=== PATIENT | female | born 1935 | race Hispanic/Latino ===

== ENCOUNTER → 2018-10-28 | Outpatient (CLI) | payer OTHER, MEDICARE | END | disposition home or self-care (01) | LOC: SHCH 07:55 | PROVIDERS: ATTEND Internal Medicine Cardiovascular Disease | DX: I71.4 Abdominal aortic aneurysm, without rupture (principal) | CPT/HCPCS: 93978 ==

== ENCOUNTER → 2018-10-30 | Outpatient (CLI) | payer OTHER | END | disposition home or self-care (01) | LOC: SHCH 08:32 → EDUNIT# 09:30 | PROVIDERS: ATTEND Internal Medicine Cardiovascular Disease | DX: I65.23 Occlusion and stenosis of bilateral carotid arteries (principal); I73.9 Peripheral vascular disease, unspecified | CPT/HCPCS: 93880; 93930 ==

== ENCOUNTER → 2018-12-09 | Outpatient (CLI) | payer OTHER, MEDICARE ==
[~2018-12-09] MED LIST: REGADENOSON 0.4 MG/5 ML PF SYG IVP SCH
== END | disposition home or self-care (01) ==
LOC: SHCH 07:58
PROVIDERS: ATTEND Internal Medicine Cardiovascular Disease
DX: I34.0 Nonrheumatic mitral (valve) insufficiency (principal); I35.0 Nonrheumatic aortic (valve) stenosis; I10 Essential (primary) hypertension
CPT/HCPCS: 78452; 93017; 96374; A9500 ×2; J2785

== ENCOUNTER → 2018-12-22 | Outpatient (CLI) | payer OTHER ==
[~2018-12-22] MED LIST changes: +IOHEXOL 350 MG/ML 100ML INFUS..BTL IV ONE; -REGADENOSON 0.4 MG/5 ML PF SYG IVP SCH
== END | disposition home or self-care (01) ==
LOC: RAH 07:40
PROVIDERS: ATTEND Internal Medicine Cardiovascular Disease
DX: K57.30 Diverticulosis of large intestine without perforation or abscess without bleeding (principal); I71.4 Abdominal aortic aneurysm, without rupture; R09.89 Other specified symptoms and signs involving the circulatory and respiratory systems; J43.9 Emphysema, unspecified; I70.1 Atherosclerosis of renal artery; Z90.49 Acquired absence of other specified parts of digestive tract
CPT/HCPCS: 74174; Q9967

== ENCOUNTER → 2019-01-23 | Outpatient (CLI) | payer OTHER | END | disposition home or self-care (01) | LOC: RAH 07:47 | PROVIDERS: ATTEND Internal Medicine Cardiovascular Disease | DX: I08.3 Combined rheumatic disorders of mitral, aortic and tricuspid valves (principal) | CPT/HCPCS: 93306 ==

== ENCOUNTER 2019-02-17 06:05 | Day surgery (SDC) | payer OTHER ==
[2019-02-12 09:42] VITALS: BP 165/63
[2019-02-12 09:53] LABS: BASOPHILS % (AUTO) 0.6 % (0.0-5.0); HEMATOCRIT 36.1 % (36-48); LYMPHOCYTES % (AUTO) 41.9 % (21.0-51.0); MEAN CORPUSCULAR HEMOGLOBIN 30.1 pg (27.0-33.0); MEAN CORPUSCULAR HGB CONC 33.4 g/dL (32.0-36.0); MEAN CORPUSCULAR VOLUME 89.9 fL (79-99); MONOCYTES % (AUTO) 10.4 % (3.0-13.0); NEUTROPHILS % (AUTO) 45.1 % (40.0-77.0); PLATELET COUNT (AUTO) 247 K/uL (130-400); RED BLOOD CELL COUNT(AUTO) 4.02 MIL/uL (4.00-5.50); RED CELL DISTRIBUTION WIDTH 19.2 % (11.0-15.5); WHITE BLOOD COUNT (AUTO) 7.7 K/uL (4.8-10.8)
[2019-02-12 09:55] LABS: APPEARANCE,URINE Clear (CLEAR); BILIRUBIN,URINE Negative (NEGATIVE); COLOR,URINE Yellow (YELLOW); GLUCOSE, URINE (UA) Negative (NEGATIVE); KETONES,URINE Negative (NEGATIVE); LEUKOCYTE ESTERASE ,URINE Moderate (NEGATIVE); NITRATE,URINE Negative (NEGATIVE); OCCULT BLOOD,URINE Moderate (NEGATIVE); PH,URINE 5.5 (5.0-8.0); PROTEIN,URINE Negative (NEGATIVE)
[2019-02-12 10:01] LABS: BACTERIA,URINE Rare /HPF (None Seen); HYALINE CASTS, URINE 0-1 /LPF (0-1 /LPF); MUCUS,URINE Rare LPF (None Seen); SQUAMOUS EPITHELIAL CELL,UR Rare /HPF (0-2)
[2019-02-12 10:02] LABS: CREATININE 0.9 mg/dL (0.5-1.5); POTASSIUM 4.3 mmol/L (3.5-5.1)
[2019-02-12 10:03] LABS: INR 1.05 (0.85-1.15); PARTIAL THROMBOPLASTIN TIME 27.6 SEC (26.3-35.5)
--- NOTE | 2019-02-16 14:30 | NUR ---
LABS INFORMED LADY MORALES OF ABNORMAL UA. NO ORDERS RECEIVED. PROCEED WITH PLANNED PROCEDURE.
[2019-02-17] VITALS (10 sets, daily range): BP systolic 133–177; BP diastolic 46–61
[~2019-02-17] VITALS: Ht 152.4 cm; Wt 63.6 kg
[~2019-02-17 06:05] MED LIST changes: +ASPI-1181 PO; +CITALOPRAM PO; -IOHEXOL 350 MG/ML 100ML INFUS..BTL IV ONE; +LISI40TA4 PO; +PLAVIX PO; +THYROID MED PO; +depakote PO
--- NOTE | 2019-02-17 06:10 | NUR ---
PATIENT ARRIVED PATIENT ARRIVED TO DAY PATIENT, ACCOMPANIED BY DAUGHTER. PATIENT AAOX3, RESPIRATION UNLABORED, VITAL SIGNS STABLE, PATIENT DENIES ANY PAIN AT THIS TIME. PROCEDURE EXPLAINED AND VERIFIED WITH PATIENT AND PATIENT'S DAUGHTER. PATIENT'S DAUGHTER INSTRUCTED TO WAIT IN ROOM IN ORDER TO SPEAK WITH DR HERNANDEZ AFTER PROCEDURE IS COMPLETE.
[2019-02-17] MEDS ORDERED: HEPARIN SODIUM 1000UNIT/ML 10ML VIAL ONE (07:16)
[2019-02-17] MEDS ORDERED: NITROGLYCERIN 5 MG/ML 10 ML VIAL IV ONE (07:16)
[2019-02-17] MEDS ORDERED: IODIXANOL 320 MG/ML 100 ML VIAL ONE (07:16)
[2019-02-17] MEDS ORDERED: SODIUM BICARB 50MEQ 50ML VIAL ONE (07:16)
[2019-02-17] MEDS ORDERED: MEPERIDINE-PF 25 MG/ML SYG ONE (07:17)
[2019-02-17] MEDS ORDERED: MIDAZOLAM HCL 1 MG/ML 2ML VIAL ONE (07:17)
[2019-02-17] MEDS ORDERED: LIDOCAINE HCL 2% 20ML ONE (07:17)
--- NOTE | 2019-02-17 07:20 | NUR ---
PATIENT TRANSFERRED PATIENT TAKEN TO [facility] VIA BED BY ALEYDA NORRIS. FAMILY MEMBERS WAITING IN ROOM FOR PATIENT TO RETURN.
[2019-02-17] MEDS ORDERED: ESCI10TA54 PO (07:29)
[2019-02-17] MEDS ORDERED: CLOP75TA14 PO (07:29)
[2019-02-17] MEDS ORDERED: CALC600T12 PO (07:30)
[2019-02-17] MEDS ORDERED: LACT1CAP62 PO (07:30)
[2019-02-17] MEDS ORDERED: BUSP15TA3 PO (07:30)
[2019-02-17] MEDS ORDERED: MULT1CAP32 PO (07:30)
[2019-02-17] MEDS ORDERED: OXYB5TAB4 PO (07:30)
[2019-02-17] MEDS ORDERED: LEVO75TA10 PO (07:30)
[2019-02-17] MEDS ORDERED: GLUCOSAMINE PO (07:30)
[2019-02-17] MEDS ORDERED: DIVA500T2 PO (07:30)
[2019-02-17] MEDS ORDERED: CHOL200026 PO (07:30)
[2019-02-17] MEDS ORDERED: OMEG-125 PO (07:31)
[2019-02-17] MEDS ORDERED: GLUC500T12 PO (07:31)
[2019-02-17] MEDS ORDERED: SODIUM CHLORIDE 0.9% 1000ML 1,000 ML IV ONE (07:37)
[2019-02-17] MEDS ORDERED: HYDRALAZINE HCL 20 MG/ML VIAL ONE (08:15)
[2019-02-17] MEDS ORDERED: SODIUM CHLORIDE 0.9% 1000ML 1,000 ML IV SCH (08:48)
[2019-02-17] MEDS ORDERED: DEXTROSE 50%-WATER 50 ML DISP.SYRIN IV PRN (09:00)
--- NOTE | 2019-02-17 09:20 | NUR ---
patient returned PATIENT BROUGHT BACK FROM SENIOR PLANNING ANALYST BY ALEYDA NORRIS AND ALEYDA GUERRA. PATIENT AAOX3, VITAL SIGNS STABLE, RIGHT FEMORAL SITE WITH DRESSING IN PLACE. DRESSING DRY AND INTACT, AREA IS SOFT AND NONTENDER. PATIENT INSTRUCTED TO KEEP RIGHT LEG STRAIGHT AND LAY FLAT FOR 4 HOURS.
[2019-02-17] MEDS ORDERED: INSULIN HUMULIN R 100 UNIT/ML 3ML SQ SCH (11:30)
[2019-02-17] MEDS ORDERED: ACET325T51 PO (12:22)
--- NOTE | 2019-02-17 13:50 | NUR ---
DISCHARGED DISCHARGE INSTRUCTIONS PROVIDED TO PATIENT'S SPOUSE, FOLLOW UP APPOINTMENTS PROVIDED AND INSTRUCTIONS ON FEMORAL SITE CARE AND ANGIOGRAM PROVIDED. PATIENT'S SPOUSE VERBALIZED UNDERSTANDING. PRESCRIPTION FOR ATORVASTATIN PROVIDED AND EXPLAINED. HANDOUTS PROVIDED ON NEW MEDICATION. PATIENT DISCHARGED FROM HOSPITAL VIA WHEELCHAIR AND ASSISTED INTO PRIVATE VEHICLE BY CHRISS MENDEZ.
== END 2019-02-17 13:50 ==
LOC: DAH 06:05
PROVIDERS: ATTEND Internal Medicine Cardiovascular Disease
DX: I77.1 Stricture of artery (principal); I10 Essential (primary) hypertension; E78.5 Hyperlipidemia, unspecified; E11.9 Type 2 diabetes mellitus without complications; Z98.890 Other specified postprocedural states; Z88.5 Allergy status to narcotic agent; Z79.01 Long term (current) use of anticoagulants; Z79.899 Other long term (current) drug therapy; Z90.49 Acquired absence of other specified parts of digestive tract; Z90.710 Acquired absence of both cervix and uterus; Z87.891 Personal history of nicotine dependence; Z82.49 Family history of ischemic heart disease and other diseases of the circulatory system; Z83.3 Family history of diabetes mellitus
CPT/HCPCS: 36223; 36225; 36415; 71045; 75710; 80048; 81001; 82948 ×2; 85025; 85610; 85730; 93005; 96360; 96361; A4215; A4216; A4221; A4222; A4223 ×3; C1760; C1769; C1894; J0360; J1644 ×2; J2175; J2250; J3490 ×3; J7030; Q9967; 99156; 99157

== ENCOUNTER → 2019-03-23 | Outpatient (CLI) | payer OTHER ==
[~2019-03-23] MED LIST changes: +ACET325T51 PO; +BUSP15TA3 PO; +CALC600T12 PO; +CHOL200026 PO; -CITALOPRAM PO; +CLOP75TA14 PO; +DIVA500T2 PO; +ESCI10TA54 PO; +GLUC500T12 PO; +IOHEXOL-350 75 ML VIAL IV ONE; +LACT1CAP62 PO; +LEVO75TA10 PO; +MULT1CAP32 PO; +OMEG-125 PO; +OXYB5TAB4 PO; -PLAVIX PO; -THYROID MED PO; -depakote PO
== END | disposition home or self-care (01) ==
LOC: RAH 07:54
PROVIDERS: ATTEND Internal Medicine Cardiovascular Disease
DX: I65.23 Occlusion and stenosis of bilateral carotid arteries (principal); I10 Essential (primary) hypertension
CPT/HCPCS: 70498; Q9967

== ENCOUNTER 2019-04-01 05:48 | Day surgery (SDC) | payer OTHER ==
[2019-03-30 16:33] LABS: BASOPHILS % (AUTO) 0.6 % (0.0-5.0); EOSINOPHILS % (AUTO) 1.2 % (0.0-8.0); HEMATOCRIT 36.6 % (36-48); LYMPHOCYTES % (AUTO) 43.1 % (21.0-51.0); MEAN CORPUSCULAR HEMOGLOBIN 31.4 pg (27.0-33.0); MEAN CORPUSCULAR HGB CONC 33.7 g/dL (32.0-36.0); MEAN CORPUSCULAR VOLUME 93.2 fL (79-99); MONOCYTES % (AUTO) 7.7 % (3.0-13.0); NEUTROPHILS % (AUTO) 47.4 % (40.0-77.0); PLATELET COUNT (AUTO) 268 K/uL (130-400); RED BLOOD CELL COUNT(AUTO) 3.93 MIL/uL (4.00-5.50); RED CELL DISTRIBUTION WIDTH 17.4 % (11.0-15.5)
[2019-03-30 16:34] VITALS: BP 135/73
[2019-03-30 16:44] LABS: CREATININE 0.9 mg/dL (0.5-1.5); INR 1.02 (0.85-1.15); PARTIAL THROMBOPLASTIN TIME 27.1 SEC (26.3-35.5); POTASSIUM 5.1 mmol/L (3.5-5.1); PROTHROMBIN TIME 10.7 SEC (9.6-11.6)
[2019-03-30 16:52] LABS: APPEARANCE,URINE Clear (CLEAR); BILIRUBIN,URINE Negative (NEGATIVE); COLOR,URINE Yellow (YELLOW); GLUCOSE, URINE (UA) Negative (NEGATIVE); KETONES,URINE Negative (NEGATIVE); LEUKOCYTE ESTERASE ,URINE Trace (NEGATIVE); NITRATE,URINE Negative (NEGATIVE); OCCULT BLOOD,URINE Negative (NEGATIVE); PROTEIN,URINE Negative (NEGATIVE)
[2019-03-30 17:34] LABS: BACTERIA,URINE Few /HPF (None Seen); MUCUS,URINE Few LPF (None Seen)
--- NOTE | 2019-03-31 14:39 | NUR ---
LABS ABNORMAL UA REPORTED TO CRISTIAN NARAYANAN,NO FURTHER ORDERS GIVEN
[2019-04-01] VITALS (23 sets, daily range): BP systolic 115–160; BP diastolic 34–79
[~2019-04-01] VITALS: Ht 154.9 cm; Wt 61.6 kg
[~2019-04-01 05:48] MED LIST changes: -ACET325T51 PO; +ACETAMINOPHEN 325 MG TAB PO PRN; -IOHEXOL-350 75 ML VIAL IV ONE; +SODIUM CHLORIDE 0.9% 500ML 500 ML IV SCH
[2019-04-01] MEDS ORDERED: SODIUM CHLORIDE 0.9% 1000ML 1,000 ML IV ONE (06:16)
[2019-04-01] MEDS ORDERED: HEPARIN SODIUM 1000UNIT/ML 10ML VIAL ONE (07:21)
[2019-04-01] MEDS ORDERED: SODIUM BICARB 50MEQ 50ML VIAL ONE (07:21)
[2019-04-01] MEDS ORDERED: NITROGLYCERIN 5 MG/ML 10 ML VIAL IV ONE (07:21)
[2019-04-01] MEDS ORDERED: MEPERIDINE-PF 25 MG/ML SYG ONE ×3 (07:22→09:06)
[2019-04-01] MEDS ORDERED: LIDOCAINE HCL 2% 20ML ONE (07:22)
[2019-04-01] MEDS ORDERED: MIDAZOLAM HCL 1 MG/ML 2ML VIAL ONE ×3 (07:22→09:06)
[2019-04-01] MEDS ORDERED: IODIXANOL 320 MG/ML 100 ML VIAL ONE (07:22)
[2019-04-01] MEDS ORDERED: SODIUM CHLORIDE 0.9% 1000ML 1,000 ML IV SCH (09:57)
[2019-04-01] MEDS ORDERED: GLUCAGON 1MG KIT 1 MG ML IM PRN (10:00)
[2019-04-01] MEDS ORDERED: DEXTROSE 50%-WATER 50 ML DISP.SYRIN IV PRN (10:00)
[2019-04-01] MEDS ORDERED: ATROPINE SULFATE 0.1 MG/ML 10 ML SYG IVP ONE (10:45)
[2019-04-01] MEDS ORDERED: INSULIN HUMULIN R 100 UNIT/ML 3ML SQ SCH (11:30)
[2019-04-01 13:21] LABS: INR 1.06 (0.85-1.15); PARTIAL THROMBOPLASTIN TIME 39.5 SEC (26.3-35.5); PROTHROMBIN TIME 11.1 SEC (9.6-11.6)
--- NOTE | 2019-04-01 14:00 | NUR ---
PAIN PT COMPLAINED OF PAIN TO LEFT ARM AND TO CATH SITE WHICH STARTED ON LINE PULL. PT STATES NOW IT SCALE OF 10. CATH SITE REMAINS SOFT, NO OOZING OR ACTIVE BLEEDING NOTED. NOTIFIED LADY HORN. PER DANE, MAY GIVE TORADOL 30 MG IV X1.
[2019-04-01] MEDS ORDERED: KETOROLAC TROMETHAMINE 60 MG/2 ML VIAL ONE (14:05)
--- NOTE | 2019-04-01 14:20 | NUR ---
NOTE PT SUPINE ON BED, POSITIONED COMFORTABLY. LEFT ARM REMAINS POSITIONED STRAIGHT, PRESSURE DRESSING IN PLACE, CATH SITE REMAINS SOFT, NO OOZING NO HEMATOMA NOTED. PT TOLERATED DIET WELL, FAMILY ASSISTED PT. VOIDED PRIOR TO LINE PULL. REPORT GIVEN TO ENRIQUE DIOR RN
[2019-04-01] MEDS ORDERED: KETOROLAC TROMETHAMINE 30MG/ML IV PRN (14:45)
[2019-04-01] MEDS ORDERED: ACETAMINOPHEN EXTRA STRENGTH 500 MG TABLET ONE (15:30)
== END 2019-04-01 16:20 | disposition home or self-care (01) ==
LOC: DAH 05:48
PROVIDERS: ATTEND Internal Medicine Cardiovascular Disease
DX: G45.8 Other transient cerebral ischemic attacks and related syndromes (principal); I77.1 Stricture of artery; I10 Essential (primary) hypertension; I73.9 Peripheral vascular disease, unspecified; E78.5 Hyperlipidemia, unspecified; E11.9 Type 2 diabetes mellitus without complications; Z88.5 Allergy status to narcotic agent; Z87.891 Personal history of nicotine dependence; Z79.01 Long term (current) use of anticoagulants; Z79.4 Long term (current) use of insulin; Z79.82 Long term (current) use of aspirin; Z79.899 Other long term (current) drug therapy; Z90.49 Acquired absence of other specified parts of digestive tract; Z98.890 Other specified postprocedural states; Z90.710 Acquired absence of both cervix and uterus; Z72.89 Other problems related to lifestyle; Z83.3 Family history of diabetes mellitus; Z82.49 Family history of ischemic heart disease and other diseases of the circulatory system
CPT/HCPCS: 36200; 36415 ×2; 37236; 71045; 75710; 80048; 81001; 82948 ×2; 85025; 85610 ×2; 85730 ×4; 93005; A4215; A4216; A4221; A4222; A4223 ×3; A4606; C1725; C1769 ×3; C1874; C1876; C1887 ×2; C1893; C1894 ×4; J1644 ×3; J1885; J2175 ×3; J2250 ×3; J3490 ×3; J7030; Q9967; 99156; 99157; J0461

== ENCOUNTER 2019-12-04 21:47 | Observation (INO) | payer OTHER ==
[~2019-12-04] VITALS: Ht 152.4 cm; Wt 61.5 kg
[~2019-12-04 21:47] MED LIST changes: -ACETAMINOPHEN 325 MG TAB PO PRN; -ASPI-1181 PO; +ASPI-1443 PO; -CALC600T12 PO; +CALC600T15 PO; +OXYB-66 PO; -OXYB5TAB4 PO; -SODIUM CHLORIDE 0.9% 500ML 500 ML IV SCH
[2019-12-04] MEDS ORDERED: NITROGLYCERIN 1GM/1 INCH PACKET TD ONE (22:22)
[2019-12-04] MEDS ORDERED: ASPIRIN 325 MG TABLET ONE (22:22)
[2019-12-04 22:33] LABS: CREATININE 1.1 mg/dL (0.5-1.5); POTASSIUM 4.5 mmol/L (3.5-5.1)
[2019-12-04 22:37] LABS: ALBUMIN 3.2 g/dL (3.5-5.0); BILIRUBIN,TOTAL 0.2 mg/dL (0.2-1.0); TOTAL PROTEIN, SERUM 6.9 g/dL (6.0-8.3)
[2019-12-04 22:44] LABS: BASOPHILS % (AUTO) 0.4 % (0.0-5.0); EOSINOPHILS % (AUTO) 3.8 % (0.0-8.0); HEMATOCRIT 36.2 % (36-48); LYMPHOCYTES % (AUTO) 40.8 % (21.0-51.0); MEAN CORPUSCULAR HEMOGLOBIN 30.3 pg (27.0-33.0); MEAN CORPUSCULAR HGB CONC 32.6 g/dL (32.0-36.0); MEAN CORPUSCULAR VOLUME 93.1 fL (79-99); MONOCYTES % (AUTO) 9.8 % (3.0-13.0); PLATELET COUNT (AUTO) 261 K/uL (130-400); RED BLOOD CELL COUNT(AUTO) 3.89 MIL/uL (4.00-5.50); RED CELL DISTRIBUTION WIDTH 15.8 % (11.0-15.5)
[2019-12-04 23:04] LABS: INR 1.02 (0.85-1.15); PARTIAL THROMBOPLASTIN TIME 28.7 SEC (26.3-35.5)
[2019-12-05] VITALS (7 sets, daily range): BP systolic 100–153; BP diastolic 52–70
[2019-12-05] MEDS ORDERED: PNEUMOCOCCAL VACCINE POLYVALENT 0.5 ML/VIAL [PPV] IM SCH (05:15)
[2019-12-05] MEDS ORDERED: NITROGLYCERIN 1GM/1 INCH PACKET TD SCH (06:00)
[2019-12-05] MEDS: NITROGLYCERIN 1GM/1 INCH PACKET TD SCH ×3 (06:58→18:30)
[2019-12-05] MEDS ORDERED: OXYBUTYNIN 5 MG TAB.SR.24H PO ONE (08:57)
[2019-12-05] MEDS: DIVALPROEX SODIUM 250 MG TABLET.DR PO SCH ×2 (09:01→20:41)
[2019-12-05] MEDS: BUSPIRONE HCL 5 MG TABLET PO SCH ×2 (09:01→20:41)
[2019-12-05] MEDS: CLOPIDOGREL BISULFATE 75 MG TAB PO SCH (09:01)
[2019-12-05] MEDS: OXYBUTYNIN 5 MG TAB.SR.24H PO SCH (09:02)
[2019-12-05] MEDS: CALCIUM CARBONATE 500 MG TABLET PO SCH (09:02)
[2019-12-05] MEDS: ASPIRIN 325MG EC TAB 325 MG TABLET.DR PO SCH (09:02)
[2019-12-05] MEDS: CITALOPRAM 20 MG TABLET PO SCH (09:02)
[2019-12-05] MEDS: LISINOPRIL 40 MG TABLET PO SCH (09:08)
[2019-12-05] MEDS ORDERED: POTASSIUM CHLORIDE 10% ELIXIR 20 MEQ/15 ML UDCUP PO PRN (10:30)
[2019-12-05] MEDS ORDERED: LACTULOSE 20 GM/30 ML UDCUP PO PRN (10:30)
[2019-12-05] MEDS ORDERED: HYDROMORPHONE HCL 0.5 MG/0.5 ML ML IVP PRN (10:30)
[2019-12-05] MEDS ORDERED: ZOLPIDEM TARTRATE 5 MG TAB PO PRN (10:30)
[2019-12-05] MEDS ORDERED: LIDOCAINE HCL-MPF 1% 2ML VIAL IV PRN (10:30)
[2019-12-05] MEDS ORDERED: DIPHENHYDRAMINE HCL 25 MG CAPSULE PO PRN (10:30)
[2019-12-05] MEDS ORDERED: POTASSIUM CHLORIDE 20 MEQ ERTAB PO PRN (10:30)
[2019-12-05] MEDS ORDERED: POTASSIUM CHLORIDE 20MEQ/100ML 100 ML IV PRN (10:30)
[2019-12-05] MEDS ORDERED: ONDANSETRON HCL 4 MG/2 ML VIAL IVP PRN (10:30)
[2019-12-05] MEDS ORDERED: MAGNESIUM 2GM PREMIX 50ML 50 ML IV PRN (10:30)
[2019-12-05] MEDS ORDERED: HYDRALAZINE HCL 20 MG/ML VIAL IV PRN (10:30)
[2019-12-05] MEDS ORDERED: MONT10TA26 PO (11:46)
[2019-12-05] MEDS ORDERED: HYDR12.54 PO (11:46)
[2019-12-05] MEDS ORDERED: MIRA25TA PO (11:46)
[2019-12-05] MEDS ORDERED: ATOR40TA69 PO (11:46)
--- NOTE | 2019-12-05 15:05 | NUR ---
PAGED DR. Vanita HERNANDEZ MD PAGED REGARDING CONSULT. PATIENT REPORTS SHE SEES DR. Vanita HERNANDEZ AN OUTPATIENT.
[2019-12-05] MEDS: HEPARIN SODIUM 5000UNIT/ML 1ML VIAL SQ SCH (20:40)
[2019-12-05] MEDS: LEVOTHYROXINE 75 MCG TABLET PO SCH (20:41)
[2019-12-06] MEDS: NITROGLYCERIN 1GM/1 INCH PACKET TD SCH ×4 (01:02→18:30)
[2019-12-06 03:41] VITALS: BP 110/42
[2019-12-06 05:10] LABS: BASOPHILS % (AUTO) 0.6 % (0.0-5.0); EOSINOPHILS % (AUTO) 5.1 % (0.0-8.0); HEMATOCRIT 37.7 % (36-48); LYMPHOCYTES % (AUTO) 45.3 % (21.0-51.0); MEAN CORPUSCULAR HGB CONC 32.1 g/dL (32.0-36.0); MEAN CORPUSCULAR VOLUME 93.5 fL (79-99); MONOCYTES % (AUTO) 7.9 % (3.0-13.0); PLATELET COUNT (AUTO) 263 K/uL (130-400); RED BLOOD CELL COUNT(AUTO) 4.03 MIL/uL (4.00-5.50); RED CELL DISTRIBUTION WIDTH 15.9 % (11.0-15.5); WHITE BLOOD COUNT (AUTO) 8.4 K/uL (4.8-10.8)
[2019-12-06 05:29] LABS: CREATININE 1.1 mg/dL (0.5-1.5); MAGNESIUM 2.1 mg/dL (1.80-2.40); PHOSPHORUS 3.9 mg/dL (2.5-4.9); POTASSIUM 5.2 mmol/L (3.5-5.1)
--- NOTE | 2019-12-06 08:00 | NUR ---
PT AAO X3 REVIEW ,. PLAN OF CARE. DENIES ANY CHEST OF PAIN, TELE MONITOR ON .FALL RISK REVIEW. ANDCALL LIGHT IN REACH.
[2019-12-06 08:31] VITALS: BP 144/54
[2019-12-06] MEDS: ASPIRIN 325MG EC TAB 325 MG TABLET.DR PO SCH (08:40)
[2019-12-06] MEDS: OXYBUTYNIN 5 MG TAB.SR.24H PO SCH (08:41)
[2019-12-06] MEDS: CLOPIDOGREL BISULFATE 75 MG TAB PO SCH (08:41)
[2019-12-06] MEDS: DIVALPROEX SODIUM 250 MG TABLET.DR PO SCH ×2 (08:41→21:30)
[2019-12-06] MEDS: BUSPIRONE HCL 5 MG TABLET PO SCH ×2 (08:42→21:30)
[2019-12-06] MEDS: PANTOPRAZOLE SODIUM 40 MG TABLET.DR PO SCH (08:42)
[2019-12-06] MEDS: LISINOPRIL 40 MG TABLET PO SCH (08:42)
[2019-12-06] MEDS: CALCIUM CARBONATE 500 MG TABLET PO SCH (08:42)
[2019-12-06] MEDS: CITALOPRAM 20 MG TABLET PO SCH (08:42)
[2019-12-06] MEDS: HEPARIN SODIUM 5000UNIT/ML 1ML VIAL SQ SCH ×2 (08:50→21:32)
[2019-12-06 12:02] VITALS: BP 110/36
--- NOTE | 2019-12-06 17:00 | NUR ---
NOSE SWA B DONE, . FOR FLU A AND B. AND TAKEN TO LAB.
[2019-12-06 17:14] VITALS: BP 111/50
--- NOTE | 2019-12-06 18:30 | NUR ---
DR. LEMOS HERE , FOR DR. HERNANDEZ UPDATE OF PT. CONSULTATION AND HISTORY. . SPOKE WITH PT OF CARE.
[2019-12-06] MEDS ORDERED: ACETAMINOPHEN 325 MG TAB PO PRN ×2 (18:45)
[2019-12-06 20:00] VITALS: BP 107/49
[2019-12-06] MEDS: LEVOTHYROXINE 75 MCG TABLET PO SCH (21:30)
[2019-12-06 23:36] VITALS: BP 139/60
[2019-12-07] MEDS: NITROGLYCERIN 1GM/1 INCH PACKET TD SCH ×4 (00:19→18:30)
[2019-12-07 03:41] VITALS: BP 141/61
--- NOTE | 2019-12-07 06:45 | NUR ---
LDAY To called with order of Lexiscan Cardiolite procedure today.
[2019-12-07 07:30] VITALS: BP 111/43
[2019-12-07] MEDS: OXYBUTYNIN 5 MG TAB.SR.24H PO SCH (09:50)
[2019-12-07] MEDS: CITALOPRAM 20 MG TABLET PO SCH (09:50)
[2019-12-07] MEDS: LISINOPRIL 40 MG TABLET PO SCH (09:51)
[2019-12-07] MEDS: CALCIUM CARBONATE 500 MG TABLET PO SCH (09:51)
[2019-12-07] MEDS: ASPIRIN 325MG EC TAB 325 MG TABLET.DR PO SCH (09:52)
[2019-12-07] MEDS: BUSPIRONE HCL 5 MG TABLET PO SCH ×2 (09:52→20:32)
[2019-12-07] MEDS: PANTOPRAZOLE SODIUM 40 MG TABLET.DR PO SCH (09:52)
[2019-12-07] MEDS: CLOPIDOGREL BISULFATE 75 MG TAB PO SCH (09:53)
[2019-12-07] MEDS: HEPARIN SODIUM 5000UNIT/ML 1ML VIAL SQ SCH ×2 (09:54→20:45)
[2019-12-07] MEDS: DIVALPROEX SODIUM 250 MG TABLET.DR PO SCH ×2 (09:57→20:32)
[2019-12-07] MEDS ORDERED: REGADENOSON 0.4 MG/5 ML PF SYG IVP SCH (10:15)
[2019-12-07 11:00] VITALS: BP 125/55
--- NOTE | 2019-12-07 13:30 | NUR ---
PT TO FIDE SCAN. VIA WHEELCHAIR, WITH STAFF . PT WAS NPO EXCEPT FOR MEDICATION FOR PROCEDURE,
--- NOTE | 2019-12-07 14:47 | NUR ---
BRANT NOTE/IA MEET WITH PATIENT IN ROOM. PER PATIENT, IS INDEPENDENT WITH ADLS, LIVES WITH SPOUSE, NO PROVIDER OR HOME HEALTH IN USE, HAS USE OF CANE AT TIMES AND ALSO HAS WHEELCHAIR AND SHOWER CHAIR BUT NOT IN USE AND FEELS SAFE TO RETURN HOME ONCE DISCHARGED FROM HOSPITAL. Addendum: 12/07/19 at 1448 by JAQUELINE DIOR RN CM Amended: Links added.
--- NOTE | 2019-12-07 16:30 | NUR ---
PT BACK FROM THE SCAN ,REVIEW CARE. CALL LIGHT IN REACH . ORDER SUPPER DIET.
[2019-12-07 16:35] VITALS: BP 97/70
[2019-12-07 19:51] VITALS: BP 100/49
[2019-12-07] MEDS: LEVOTHYROXINE 75 MCG TABLET PO SCH (20:32)
[2019-12-07 23:52] VITALS: BP 128/51
[2019-12-08] MEDS: NITROGLYCERIN 1GM/1 INCH PACKET TD SCH ×2 (00:30→06:30)
[2019-12-08 03:47] VITALS: BP 138/47
--- NOTE | 2019-12-08 08:24 | NUR ---
EXPECT DISPO TO HOME TODAY LEXISCAN NEGATIVE. AWAITING ANY POSS MED ADJUSTMENTS. Addendum: 12/08/19 at 0826 by LENIN TELLEZ RN CM Amended: Links added.
[2019-12-08 08:34] VITALS: BP 126/55
[2019-12-08] MEDS: DIVALPROEX SODIUM 250 MG TABLET.DR PO SCH (10:10)
[2019-12-08] MEDS: OXYBUTYNIN 5 MG TAB.SR.24H PO SCH (10:10)
[2019-12-08] MEDS: CITALOPRAM 20 MG TABLET PO SCH (10:10)
[2019-12-08] MEDS: PANTOPRAZOLE SODIUM 40 MG TABLET.DR PO SCH (10:10)
[2019-12-08] MEDS: ASPIRIN 325MG EC TAB 325 MG TABLET.DR PO SCH (10:10)
[2019-12-08] MEDS: CALCIUM CARBONATE 500 MG TABLET PO SCH (10:10)
[2019-12-08] MEDS: LISINOPRIL 40 MG TABLET PO SCH (10:10)
[2019-12-08] MEDS: BUSPIRONE HCL 5 MG TABLET PO SCH (10:10)
[2019-12-08] MEDS: CLOPIDOGREL BISULFATE 75 MG TAB PO SCH (10:11)
[2019-12-08] MEDS: HEPARIN SODIUM 5000UNIT/ML 1ML VIAL SQ SCH (10:17)
== END 2019-12-08 12:30 | disposition home or self-care (01) ==
LOC: EDH 21:47 → EDHIP 12-05 00:15 → 3CH 12-05 01:41
PROVIDERS: ADMIT Internal Medicine Critical Care Medicine; ATTEND Internal Medicine Critical Care Medicine
DX: I20.9 Angina pectoris, unspecified (principal); I71.4 Abdominal aortic aneurysm, without rupture; I65.29 Occlusion and stenosis of unspecified carotid artery; I11.0 Hypertensive heart disease with heart failure; I50.30 Unspecified diastolic (congestive) heart failure; E78.5 Hyperlipidemia, unspecified; E11.51 Type 2 diabetes mellitus with diabetic peripheral angiopathy without gangrene; Z86.79 Personal history of other diseases of the circulatory system; Z87.891 Personal history of nicotine dependence; Z88.5 Allergy status to narcotic agent; Z90.710 Acquired absence of both cervix and uterus; Z90.49 Acquired absence of other specified parts of digestive tract
CPT/HCPCS: 36415 ×3; 71045 ×2; 78452; 80048; 80053; 80164; 82550; 83690; 83735; 84100; 84484 ×3; 85025 ×2; 85610; 85730; 87804 ×2; 87880; 93005 ×3; 93017; 93306; 93356; 96372 ×4; 99285; A9500 ×2; G0378 ×25; J1644 ×6; J2785; 96374